=== PATIENT | male | born 1960 | race African-American/Black ===

== ENCOUNTER 2017-10-29 05:01 | Emergency (ER) | payer MEDICAID ==
[~2017-10-29] VITALS: Ht 170.2 cm; Wt 64.0 kg
[~2017-10-29 05:01] MED LIST: ABIL10; ALPR2TAB2 PO; OMEP20CA10 PO; QUET100T; ZYPREXA PO
[2017-10-29 05:05] VITALS: BP 154/94
== END 2017-10-29 05:45 | disposition left against medical advice (07) ==
LOC: ER 05:01
DX: Z00.8 Encounter for other general examination (principal); Z53.21 Procedure and treatment not carried out due to patient leaving prior to being seen by health care provider

== ENCOUNTER 2018-03-15 20:16 | Emergency (ER) | payer MEDICAID, OTHER ==
[~2018-03-15] VITALS: Ht 167.6 cm; Wt 70.0 kg
[2018-03-16] MEDS ORDERED: ACETAMINOPHEN 325MG TABLET PO STA (06:26)
[2018-03-16] MEDS ORDERED: ONDANSETRON 4MG ODT PO STA (06:26)
[2018-03-16 07:08] LABS: EOSINOPHILS % 5.1 % (0.0-5.0); HEMATOCRIT. 39.9 % (42.0-52.0); HEMOGLOBIN. 13.6 g/dL (14.0-18.0); LYMPHOCYTES % 33.9 % (20.0-50.0); MEAN CORPUSCULAR HEMOGLOBIN 33.4 pg (28.0-32.0); MEAN CORPUSCULAR VOLUME 98.3 fL (80.0-94.0); MEAN PLATELET VOLUME 6.9 fl (7.4-10.4); PLATELET 211 x1000/uL (130-400); RED BLOOD CELL COUNT 4.06 mill/uL (4.7-6.1); RED CELL DISTRIBUTION WIDTH 14.7 % (11.6-14.6)
[2018-03-16 07:11] LABS: CHLORIDE 104 mEq/L (98-107)
[2018-03-16 07:15] LABS: ETHANOL BLOOD < 10 mg/dL
[2018-03-16 07:52] LABS: PROTHROMBIN TIME 10.5 sec (9.4-11.6)
[2018-03-16 08:46] LABS: CLARITY URINE TURBID (CLEAR); COLOR URINE YELLOW (YELLOW); KETONES URINE NEGATIVE (NEGATIVE); LEUKOCYTE ESTERASE URINE NEGATIVE (NEGATIVE); NITRITE URINE NEGATIVE (NEGATIVE); OCCULT BLOOD URINE NEGATIVE (NEGATIVE); PH URINE 6.5 (4.5-8.0); PROTEIN URINE NEGATIVE (NEGATIVE); UROBILINOGEN URINE 0.2 E.U./dL (0.2-1.0)
[2018-03-16 09:16] LABS: *AMPHETAMINES SCREEN URINE NEGATIVE (NEGATIVE); *BARBITURATES SCREEN URINE NEGATIVE (NEGATIVE)
[2018-03-16 09:17] LABS: *BENZODIAZEPINES SCREEN URINE NEGATIVE (NEGATIVE); *COCAINE SCREEN URINE PRESUMTIVE POSITIVE (NEGATIVE); CANNABINOID URINE SCREEN PRESUMTIVE POSITIVE (NEGATIVE); METHADONE URINE SCREEN NEGATIVE (NEGATIVE); OPIATES URINE SCREEN NEGATIVE (NEGATIVE); PHENCYCLIDINE URINE SCREEN NEGATIVE (NEGATIVE)
[2018-03-16 09:45] VITALS: BP 129/85
== END 2018-03-16 09:50 | disposition home or self-care (01) ==
LOC: ER 20:16
DX: R10.9 Unspecified abdominal pain (principal); R11.0 Nausea; R03.0 Elevated blood-pressure reading, without diagnosis of hypertension; F17.210 Nicotine dependence, cigarettes, uncomplicated; F12.90 Cannabis use, unspecified, uncomplicated; Z98.890 Other specified postprocedural states
CPT/HCPCS: 36415; 80053; 80305; 81003; 83690; 85025; 85610; 99284; G0482; Q0162; Z7610

== ENCOUNTER 2024-03-25 04:03 | Emergency (ER) | payer MEDICAID, OTHER ==
[~2024-03-25] VITALS: Ht 170.2 cm; Wt 67.0 kg
[~2024-03-25 04:03] MED LIST changes: -OMEP20CA10 PO; +OMEP20CA14 PO
[2024-03-25 04:09] VITALS: TEMP 98.4; O2SAT 100
[2024-03-25 04:55] LABS: BASOPHILS % 1.4 % (0.0-2.0); EOSINOPHILS % 0.6 % (0.0-5.0); HEMATOCRIT. 28.6 % (42.0-52.0); HEMOGLOBIN. 8.6 g/dL (14.0-18.0); LYMPHOCYTES % 24.4 % (20.0-50.0); MEAN CORPUSCULAR HEMOGLOBIN 20.9 pg (28.0-32.0); MEAN CORPUSCULAR HGB CONC 30.2 g/dL (31.0-37.0); MEAN CORPUSCULAR VOLUME 69.3 fL (80.0-94.0); MEAN PLATELET VOLUME 8.3 fl (7.4-10.4); MONOCYTES % 10.1 % (2.0-8.0); NEUTROPHILS % 63.5 % (40.0-76.0); PLATELET 289 x1000/uL (130-400); RED BLOOD CELL COUNT 4.12 mill/uL (4.7-6.1); RED CELL DISTRIBUTION WIDTH 25.6 % (11.6-14.6); WHITE BLOOD COUNT 7.1 x1000/uL (4.5-11.0)
[2024-03-25 04:56] LABS: ADD RBC MORPHOLOGY YES; DIFFERENTIAL COMMENT 1
[2024-03-25 05:04] LABS: CHLORIDE 109 mEq/L (98-107); POTASSIUM 3.6 mEq/L (3.5-5.1); SODIUM 142 mEq/L (136-145)
[2024-03-25 05:05] LABS: CALCIUM 9.9 mg/dL (8.7-10.4); CARBON DIOXIDE 24 mEq/L (21-32)
[2024-03-25 05:10] LABS: GLUCOSE 76 mg/dL (70-105); UREA NITROGEN BLOOD 19 mg/dL (9-23)
[2024-03-25 05:12] LABS: ACETAMINOPHEN < 2 ug/mL (10-30)
[2024-03-25 05:46] LABS: PLATELET ESTIMATE NORMAL
[2024-03-25 05:50] LABS: MICROCYTOSIS 2+; OVALOCYTES 2+; TARGET CELLS 1+; TEAR DROP CELLS 1+
[2024-03-25 06:01] LABS: ETHANOL BLOOD < 10 mg/dL (<10)
[2024-03-25 14:30] VITALS: BP 115/75; PULSE 78; RESP 19
== END 2024-03-25 14:51 | disposition home or self-care (01) ==
LOC: ER 04:03
DX: R45.851 Suicidal ideations (principal); F12.90 Cannabis use, unspecified, uncomplicated; Z98.890 Other specified postprocedural states; Z87.442 Personal history of urinary calculi; Z88.6 Allergy status to analgesic agent
CPT/HCPCS: 36415; 80048; 80307; 80320; 80329; 83880; 85025; 99284; G0480